=== PATIENT | female | born 1990 | race Caucasian/White ===

== ENCOUNTER 2019-03-28 21:29 | Emergency (ER) | payer OTHER ==
[~2019-03-28] VITALS: Ht 177.8 cm; Wt 83.9 kg
[~2019-03-28 21:29] MED LIST: PREDNISONE20 MG PO
[2019-03-28] MEDS ORDERED: PREDNISONE20 MG PO (21:53)
== END 2019-03-28 22:09 | disposition home or self-care (01) ==
LOC: ED 21:29
DX: J45.901 Unspecified asthma with (acute) exacerbation (principal); Z79.52 Long term (current) use of systemic steroids
CPT/HCPCS: 94640; 99284; J7512